=== PATIENT | female | born 1990 | race African-American/Black ===

== ENCOUNTER 2018-04-05 18:12 | Emergency (ER) | payer MEDICAID, OTHER ==
[~2018-04-05] VITALS: Ht 170.2 cm; Wt 79.4 kg
[2018-04-05 18:30] VITALS: BP 124/70
[2018-04-05] MEDS ORDERED: NAPROXEN 500 MG TAB PO ONE (21:15)
== END 2018-04-05 22:09 | disposition home or self-care (01) ==
LOC: ER 18:12
DX: S83.92XA Sprain of unspecified site of left knee, initial encounter (principal); B37.9 Candidiasis, unspecified; E11.9 Type 2 diabetes mellitus without complications; I10 Essential (primary) hypertension; F17.210 Nicotine dependence, cigarettes, uncomplicated; Z90.49 Acquired absence of other specified parts of digestive tract; W18.39XA Other fall on same level, initial encounter; Y93.89 Activity, other specified; Y99.8 Other external cause status; Y92.39 Other specified sports and athletic area as the place of occurrence of the external cause
CPT/HCPCS: 29505; 73562

== ENCOUNTER 2018-08-31 21:17 | Emergency (ER) | payer OTHER ==
[~2018-08-31] VITALS: Ht 170.2 cm; Wt 77.1 kg
[2018-09-01 02:49] VITALS: BP 113/48
[2018-09-01] MEDS ORDERED: HYDROcodone-ACET 5/325MG TAB PO ONE (03:45)
[2018-09-01] MEDS ORDERED: BACLOFEN 10 MG TAB PO ONE (03:45)
== END 2018-09-01 04:05 | disposition home or self-care (01) ==
LOC: ER 21:23
DX: S40.012A Contusion of left shoulder, initial encounter (principal); S70.02XA Contusion of left hip, initial encounter; F17.210 Nicotine dependence, cigarettes, uncomplicated; V43.52XA Car driver injured in collision with other type car in traffic accident, initial encounter; Y93.89 Activity, other specified; Y92.488 Other paved roadways as the place of occurrence of the external cause; Y99.8 Other external cause status
CPT/HCPCS: 73030; 73502

== ENCOUNTER 2019-03-03 14:43 | Emergency (ER) | payer OTHER ==
[~2019-03-03] VITALS: Ht 170.2 cm; Wt 74.8 kg
[2019-03-03] MEDS ORDERED: IBUPROFEN 800 MG TAB PO ONE (16:45)
== END 2019-03-03 17:14 | disposition home or self-care (01) ==
LOC: ER 15:08
DX: J03.90 Acute tonsillitis, unspecified (principal); F17.210 Nicotine dependence, cigarettes, uncomplicated

== ENCOUNTER → 2019-04-25 | Emergency (ER) | payer OTHER ==
[~2019-04-25] VITALS: Ht 170.2 cm; Wt 74.4 kg
[~2019-04-25] MED LIST: MORPHINE SULF INJ 2 MG/ML SYRINGE 1ML IV ONE; ONDANSETRON HCL 4 MG/2 ML VIAL IV ONE
[2019-04-25 22:19] LABS: Basophils # (auto) 0 uL; Basophils % (auto) 0.5 % (0.0-2.0); Eosinophils # (auto) 0.3 uL; Hematocrit 35.8 % (36.0-46.0); Hemoglobin 11.8 g/dL (12.2-16.2); Lymphocytes # (auto) 1.8 uL; Lymphocytes % (auto) 25.6 % (10.0-50.0); Mean Corpuscular Hemoglobin 30.6 pg (28.0-32.0); Mean Corpuscular Hgb Conc. 32.8 g/dL (32.0-36.0); Mean Corpuscular Volume 93.4 fL (80.0-100.0); Monocytes # (auto) 0.5 uL; Monocytes % (auto) 6.9 % (0.0-12.0); Neutrophils # (auto) 4.5 uL; Nucleated Red Blood Cells % 0.1 %; Platelet Count (auto) 305 10^3/uL (140-450); Red Blood Cells 3.84 10^6/uL (4.0-5.20); Red Cell Distribution Width 15.3 % (11.8-14.3); White Blood Cell 7.2 10^3/uL (4.4-10.8)
[2019-04-25 22:43] LABS: Albumin 3.3 g/dL (3.4-5.0); BUN/Creatinine Ratio 19.7; Calcium 7.9 mg/dL (8.5-10.1); Potassium 3.8 mmol/L (3.5-5.1)
[2019-04-25 22:46] LABS: Bilirubin, Total 0.1 mg/dL (0.2-1.0); Total Protein 7.1 g/dL (6.4-8.2)
[2019-04-26 00:05] LABS: Urine Bacteria FEW /hpf (None Seen); Urine Blood Negative /uL (Negative); Urine Specific Gravity 1.022 (1.001-1.035); Urine WBC 5 /hpf (0 - 5)
[2019-04-26 03:16] VITALS: BP 128/76
== END | disposition home or self-care (01) ==
LOC: ER 22:03
DX: T83.39XA Other mechanical complication of intrauterine contraceptive device, initial encounter (principal); R10.32 Left lower quadrant pain; R10.2 Pelvic and perineal pain; Y83.9 Surgical procedure, unspecified as the cause of abnormal reaction of the patient, or of later complication, without mention of misadventure at the time of the procedure; Y92.89 Other specified places as the place of occurrence of the external cause
CPT/HCPCS: 36415; 74176; 76856; 80053; 81001; 81025; 85025; 96374; 96375

== ENCOUNTER 2021-09-06 14:32 | Emergency (ER) | payer MEDICAID, OTHER ==
[~2021-09-06] VITALS: Ht 170.2 cm; Wt 68.0 kg
[2021-09-06 14:33] VITALS: BP 108/71
[2021-09-06] MEDS ORDERED: BACLOFEN 10 MG TAB PO ONE (16:00)
[2021-09-06] MEDS ORDERED: KETOROLAC TROMETH 60MG/2ML VIAL IM ONE (16:00)
[2021-09-06] MEDS ORDERED: IBUP800T27 PO (16:14)
[2021-09-06] MEDS ORDERED: METH750T22 PO (16:14)
== END 2021-09-06 16:23 | disposition home or self-care (01) ==
LOC: ER 14:33
DX: M43.6 Torticollis (principal); F17.210 Nicotine dependence, cigarettes, uncomplicated; Z90.49 Acquired absence of other specified parts of digestive tract; Z79.1 Long term (current) use of non-steroidal anti-inflammatories (NSAID); Z79.899 Other long term (current) drug therapy
CPT/HCPCS: 96372; 99283; J1885

== ENCOUNTER 2024-02-24 11:05 | Emergency (ER) | payer MEDICAID ==
[~2024-02-24] VITALS: Ht 170.2 cm; Wt 71.3 kg
[~2024-02-24 11:05] MED LIST changes: +IBUP-1456 PO; +METH-1182 PO; -MORPHINE SULF INJ 2 MG/ML SYRINGE 1ML IV ONE; -ONDANSETRON HCL 4 MG/2 ML VIAL IV ONE
[2024-02-24] MEDS: ONDANSETRON HCL 4 MG/2 ML VIAL IV ONE (13:37)
[2024-02-24] MEDS: SODIUM CHLORIDE 0.9% 1,000 ML IVB ONE (13:37)
[2024-02-24] MEDS: MORPHINE SULFATE 4 MG/ML SYR/VIAL IV ONE (13:37)
[2024-02-24 13:44] LABS: Basophils # (auto) 0.1 10 ^3/uL (0-0.2); Eosinophils # (auto) 0.1 10 ^3/uL (0-0.8); Eosinophils % (auto) 2.1 % (0.0-7.0); Hematocrit 36.9 % (36.0-46.0); Hemoglobin 12.2 g/dL (12.2-16.2); Lymphocytes # (auto) 1.3 10 ^3/uL (0.4-5.4); Mean Corpuscular Hemoglobin 29.6 pg (28.0-32.0); Mean Corpuscular Hgb Conc. 33.1 g/dL (32.0-36.0); Mean Corpuscular Volume 89.4 fL (80.0-100.0); Monocytes # (auto) 0.4 10 ^3/uL (0-1.3); Monocytes % (auto) 6.3 % (0.0-12.0); Neutrophils # (auto) 3.7 10 ^3/uL (1.6-8.6); Neutrophils % (auto) 66.6 % (37.0-80.0); Nucleated Red Blood Cells % 0.1 %; Platelet Count (auto) 308 10^3/uL (140-450); Red Blood Cells 4.13 10^6/uL (4.0-5.20); Red Cell Distribution Width 17.3 % (11.8-14.3); White Blood Cell 5.6 10^3/uL (4.4-10.8)
[2024-02-24 14:10] LABS: Alanine Aminotransferase 13 U/L (7-40); Albumin 4.2 g/dL (3.2-4.8); Alkaline Phosphatase 56 U/L (46-116); Anion Gap 3 (5-15); Aspartate Aminotransferase 12 U/L (13-40); BUN/Creatinine Ratio 18.2 (10.0-20.0); Bilirubin, Total 0.4 mg/dL (0.2-1.0); Blood Urea Nitrogen 14 mg/dL (9-23); Calcium 9.4 mg/dL (8.7-10.4); Carbon Dioxide 28 mmol/L (20-30); Chloride 108 mmol/L (98-107); Glucose 75 mg/dL (74-106); Lipase 55 U/L (12-53); Potassium 4.5 mmol/L (3.5-5.1); Sodium 139 mmol/L (136-145); Total Protein 7.1 g/dL (5.7-8.2)
[2024-02-24 15:40] LABS: Urine Bacteria None Seen /hpf (None Seen)
[2024-02-24 16:01] LABS: Urine Blood Negative /uL (Negative); Urine Clarity Clear (Clear); Urine Color Yellow (Yellow); Urine Mucus FEW (None Seen); Urine Protein, UAD Negative (Negative); Urine Specific Gravity 1.027 (1.001-1.035); Urine Urobilinogen Normal (Negative); Urine WBC <1 /hpf (0 - 5); Urine pH 6.5 (5.0-9.0)
[2024-02-24] MEDS: IOHEXOL 300 MG/ML 100ML BOTTLE IJ ONE (17:35)
[2024-02-24] MEDS ORDERED: HYDR-4902 PO (18:31)
[2024-02-24] MEDS ORDERED: METR-344 PO (18:41)
[2024-02-24 19:29] VITALS: BP 127/70; PULSE 82; RESP 19; TEMP 98.7; O2SAT 100
== END 2024-02-24 19:29 | disposition home or self-care (01) ==
LOC: ER 11:05
DX: R10.30 Lower abdominal pain, unspecified (principal); R10.2 Pelvic and perineal pain; F17.210 Nicotine dependence, cigarettes, uncomplicated; Z98.890 Other specified postprocedural states; Z79.899 Other long term (current) drug therapy
CPT/HCPCS: 36415; 74177; 80053; 81001; 81025; 83690; 84702; 85025; 96361; 96374; 96375; 99285; J2270; J2405; J7030; Q9967